=== PATIENT | female | born 1965 | race Caucasian/White ===

== ENCOUNTER 2024-04-02 07:59 | Outpatient (CLI) | payer BC, SELFPAY ==
--- NOTE | ~2024-04-02 | MR_ITS ---
EXAMINATION: MR cervical spine wo con DATE: 04/02/2024 09:05 INDICATION: Cervical radiculopathy TECHNIQUE: Magnetic resonance imaging (MRI) of the cervical spine was performed without intravenous c ontrast. Sequences included sagittal T2-weighted FSE, sagittal T2-weighted FS FSE, sagittal T1-weight ed FSE, axial MERGE and axial T2-weighted FSE. COMPARISON: None FINDINGS: Bone alignment is normal. Vertebral body heights are normal. Sclerotic bone island at the posterior C6 vertebral body. Bone marrow signal intensity is normal. Moderate disc height loss with annular fis sures at C2 C4 through C6-C7. Additional annular fissure without disc height loss at C2-C3. Cord sign al intensity is normal. Cervical soft tissues are unremarkable. The following disc levels are specifi alvaro discussed: C2-C3: The disc does not extend beyond the endplate margin. There is mild right uncovertebral joint o steoarthritis. There is mild bilateral facet joint osteoarthritis. There is no neural foraminal steno sis. There is no central canal stenosis. C3-C4: Disc is bulging. There is severe bilateral uncovertebral joint osteoarthritis. There is mild b ilateral facet joint osteoarthritis. There is moderate bilateral, left greater than right neural fora kennedy stenosis. There is mild central canal stenosis flattening the ventral surface of the cord. C4-C5: Disc is bulging. There is severe bilateral uncovertebral joint osteoarthritis. There is mild r ight and moderate left facet joint osteoarthritis. There is moderate right and moderate to severe lef t neural foraminal stenosis. There is mild central canal stenosis with flattening of the ventral surf devin of the cord. C5-C6: Disc is bulging. There is severe bilateral uncovertebral joint osteoarthritis. There is mild b ilateral facet joint osteoarthritis. There is moderate to severe right and severe left neural foramin al stenosis. There is mild central canal stenosis with flattening of the ventral surface of the cord. C6-C7: Disc is bulging. There is severe bilateral uncovertebral joint osteoarthritis. There is mild b ilateral facet joint osteoarthritis. There is moderate right and moderate to severe left neural shaan inal stenosis. There is mild central canal stenosis with flattening of the ventral surface of the cor d. C7-T1: The disc does not extend beyond the endplate margin. There is no uncovertebral joint osteoarth ritis. There is moderate bilateral facet joint osteoarthritis. There is mild left neural foraminal st enosis. There is no central canal stenosis. IMPRESSION: 1. Moderate cervical spondylosis. Reviewed, dictated and finalized at location A.
--- NOTE | ~2024-04-02 | MR_ITS ---
EXAMINATION: MR lumbar spine wo con DATE: 04/02/2024 09:05 INDICATION: Lumbar radiculopathy. TECHNIQUE: Magnetic resonance imaging (MRI) of the lumbar spine was performed without intravenous con trast. Sequences included sagittal T2-weighted FSE, sagittal T2-weighted FS FSE, sagittal T1-weighted FSE, and axial T2-weighted FSE. COMPARISON: None FINDINGS: There is 5 degrees dextrocurvature of lumbar spine. There is 6 mm anterolisthesis of L4 on L5. There are Schmorl's nodes at most levels. There is moderately decreased disc height at L4-L5 and mildly decreased disc height at L5-S1. The distal spinal cord signal intensity is normal. The conus m edullaris is at T12-L1. There is a 2.2 cm cyst in left kidney. There is a 2.0 cm mass in left kidney. The following disc levels are specifically discussed: L1-L2: The disc does not extend beyond the endplate margin. There is mild bilateral facet joint osteo arthritis. There is no neural foraminal stenosis. There is no central canal stenosis. L2-L3: The disc is bulging. There is mild bilateral facet joint osteoarthritis. There is mild bilater al neural foraminal stenosis. There is mild central canal stenosis. L3-L4: The disc is bulging. There is mild bilateral facet joint osteoarthritis. There is mild bilater al neural foraminal stenosis. There is mild central canal stenosis. L4-L5: The disc is bulging and has an annular fissure. There is severe right facet joint osteoarthrit is. There is mild right and moderate left neural foraminal stenosis. There is mild central canal sten osis. There is posterior decompression. L5-S1: The disc is bulging with superimposed left central extrusion. There is mild bilateral facet nettie int osteoarthritis. There is mild bilateral neural foraminal stenosis. There is mild central canal st enosis. IMPRESSION: 1. Moderate lumbar spondylosis. 2. 2.0 cm left kidney mass, which may be a hemorrhagic cyst or a neoplasm. Abdomen CT or MRI without and with contrast is recommended. Reviewed, dictated and finalized at location E. IMPRESSION: 1. Moderate lumbar spondylosis. 2. 2.0 cm left kidney mass, which may be a hemorrhagic cyst or a neoplasm. Abdo men CT or MRI without and with contrast is recommended.
== END 2024-04-02 08:00 ==
LOC: GOSHIMG 08:01
PROVIDERS: Visit Provider Anesthesiology
DX: M43.02 Spondylolysis, cervical region (principal); M43.06 Spondylolysis, lumbar region; N28.89 Other specified disorders of kidney and ureter
CPT/HCPCS: 72141; 72148

== ENCOUNTER 2024-05-29 08:28 | Outpatient (CLI) | payer BC, SELFPAY ==
--- NOTE | ~2024-05-29 | CT_ITS ---
EXAMINATION:CT diagnostic chest w con DATE: 05/29/2024 09:10 INDICATION: Chest pain. TECHNIQUE: Computed tomography (CT) of the chest was performed with 100 mL Omnipaque 350 intravenous contrast. Automated exposure control and iterative reconstruction technique were employed. The dose-l ength product (DLP) was 128.20 mGy-cm. COMPARISON: None. FINDINGS: There is mild scarring at the lung apices. Calcified right lung nodules are consistent with old granulomatous disease. No pleural effusion. The heart size is normal. No pericardial effusion. T here is mild chronic anterior wedging of multiple mid thoracic vertebral bodies. There is severe thor acic spondylosis. IMPRESSION: 1. No specific etiology for the patient's symptoms. Reviewed, dictated and finalized at location A.
--- NOTE | ~2024-05-29 | CT_ITS ---
CT abdomen pelvis wo/w con Ordering provider: Milena Vernon History: 58 years Female with . FINDING ON KIDNEY . Comparison: None. Technique: CT abdomen and pelvis with and without IV and without oral contrast. Automated exposure co ntrol and iterative reconstruction technique were employed. The dose-length product was 380.96 mGy-cm . 100 mL Omnipaque 350 was given IV. Findings: VISUALIZED LOWER CHEST: Normal. UPPER ABDOMINAL ORGANS: Liver: Normal. Gallbladder: Normal. Spleen: Normal. Stomach/duodenum: Normal. Pancreas: Normal. Adrenals: Normal. Kidneys: Cysts seen in the left kidney upper pole measuring 2.2 cm. Cyst in the left kidney lower sanjeev e measuring 2.5 cm. Cyst is seen in the right kidney midpole measuring 1.5 cm. PELVIC ORGANS: The bladder is underfilled. BOWEL AND MESENTERY: Colon: No evidence of diverticulitis.. Fecal material is loaded in the colon. The appendix is not dem onstrated. Small Bowel: Normal. No obstruction. Peritoneum/mesentery: No free air or free fluid. No mesenteric lymphadenopathy. RETROPERITONEUM: Mild atheromatous disease of the abdominal aorta. No retroperitoneal lymphadenopat hy. MUSCULOSKELETAL: Superficial soft tissues: The superficial soft tissues are normal. Bones: Age appropriate degenerative changes of the spine. Spondylolisthesis at the level of L4-L5. Sp ondylolysis seen on the left side of the same level. IMPRESSION: 1. No evidence of appendicitis, diverticulitis or intestinal obstruction. 2. Constipation. 3. Bilateral renal cysts. Reviewed, dictated and finalized at location A.
== END 2024-05-29 08:29 ==
LOC: MICIMG 08:29
DX: N28.1 Cyst of kidney, acquired (principal); R07.9 Chest pain, unspecified
CPT/HCPCS: 71260; 74178; Q9967

== ENCOUNTER 2024-06-07 07:41 | Outpatient (CLI) | payer BC, SELFPAY ==
--- NOTE | ~2024-06-07 | MM_ITS ---
EXAMINATION: MM screening leonila BI w enrico HISTORY: Screening TECHNIQUE: Craniocaudal and mediolateral oblique 3-D tomosynthesis images were obtained and synthetic 2-D images were generated. CAD analysis was submitted and interpreted. COMPARISON: No prior mammogram is available for comparison at this institution. BREAST PARENCHYMAL COMPOSITION: Dense: The breasts are heterogeneously dense, which may obscure small masses FINDINGS: There are asymmetries in the upper outer quadrant of the left breast anterior-middle depth. There are no suspicious masses, calcifications or architectural distortion of the right breast to paz ggest malignancy. IMPRESSION: 1. Left breast asymmetries. 2. Recommend comparison to previous outside mammograms. BI-RADS Category 0: Incomplete: Needs additional imaging evaluation. Reviewed, dictated and finalized at location B.
== END 2024-06-07 07:42 | disposition home or self-care (01) ==
DX: Z12.31 Encounter for screening mammogram for malignant neoplasm of breast (principal); R92.8 Other abnormal and inconclusive findings on diagnostic imaging of breast
CPT/HCPCS: 77063; 77067

== ENCOUNTER 2024-07-27 10:18 | Outpatient (CLI) | payer BC, SELFPAY ==
--- NOTE | ~2024-07-27 | MMUS_ITS ---
EXAMINATION: MM diagnostic leonila LT w enrico, US breast LT limited HISTORY: Follow-up left breast asymmetries TECHNIQUE: Additional 3-D tomosynthesis images of the left breast were performed and synthetic 2-D im ages were generated. CAD analysis was submitted and interpreted. High resolution Limited left breast ultrasound was performed. COMPARISON: Comparison to multiple prior studies sequentially, with oldest reviewed study dated 05/02. BREAST PARENCHYMAL COMPOSITION: Not dense: There are scattered areas of fibroglandular density. FINDINGS: MAMMOGRAPHIC FINDINGS: There are persistent asymmetry superiorly in the left breast on spot MLO and mediolateral views, alth ough no concordant finding is seen on the spot CC view. ULTRASOUND: Limited left breast ultrasound: At 12:00 near the areola is an irregular shaped hypoechoic 5 mm mass with posterior shadowing. No internal vascularity. IMPRESSION: 1. Irregular shaped hypoechoic left breast mass at 12:00 near the areola. 2. Ultrasound-guided left breast biopsy recommended. BI-RADS category 4, suspicious findings. Reviewed, dictated and finalized at location B. IMPRESSION: 1. Irregular shaped hypoechoic left breast mass at 12:00 near the areola. 2. Ultrasound-guided left breast biopsy recommended. BI-RADS category 4, suspicious findings.
== END 2024-07-27 10:19 | disposition home or self-care (01) ==
DX: R92.8 Other abnormal and inconclusive findings on diagnostic imaging of breast (principal)
CPT/HCPCS: 76642; 77061; 77065; G0279

== ENCOUNTER 2024-09-26 07:28 | Outpatient (CLI) | payer BC, SELFPAY ==
--- NOTE | ~2024-09-26 | MMUS_ITS ---
US breast biopsy LT w image, MM post biopsy diagnostic LT EXAMINATION: US GUIDED NEEDLE BIOPSY WITH VACUUM ASSISTANCE DATE: 09/26/2024 11:04 SUPERVISOR OF COMMUNICATIONS INDICATION: Left breast mass seen on prior examination. Ultrasound-guided core biopsy is requested t o evaluate for malignancy. BREAST PARENCHYMAL COMPOSITION: Not dense: There are scattered areas of fibroglandular density. TECHNIQUE AND FINDINGS: The risks and potential benefits of the procedure were discussed with the patient, and written inform ed consent was obtained. After sterile preparation of the left breast, 1% lidocaine was utilized for local anesthesia. 1% lidocaine with epinephrine was used for deep anesthesia. A 10G vacuum-assisted biopsy gun needle was advanced through to the outer edge of the region of inter est from a superior approach utilizing sonographic guidance. A total of 4 tissue core samples were o btained through the lesion. An Inrad tissue marker clip was then placed at the biopsy site. Hemostas is was achieved. The patient tolerated procedure well and there was no evidence of immediate complication. The patien t was given verbal instructions partly is from the department. Left breast mammograms to document ti ssue marker clip placement. The tissue samples were submitted to surgical pathology for histologic an alysis. Follow up mammogram demonstrates the tissue marker in the mass slightly superior to the nipple on the mediolateral view. There is an additional mass located superiorly to the biopsied mass, not definite ly seen on prior examination or current CC view. Additional sonographic images reveal no discrete mas s in this area. Additional evaluation with stereotactic biopsy of this mass was discussed with the hugo meneses at the time of the examination and will be scheduled. IMPRESSION: 1. Successful ultrasound-guided vacuum-assisted biopsy of left breast mass with post procedure mammo gram for marker placement. Please refer to pathology report for histologic analysis. 2: Follow up mammogram demonstrates the tissue marker in the mass slightly superior to the nipple on the mediolateral view. There is an additional mass located superiorly to the biopsied mass, not defi nitely seen on prior examination or current CC view. Additional sonographic images reveal no discrete mass in this area. Additional evaluation with stereotactic biopsy of this mass was discussed with kiera gannon at the time of the examination and will be scheduled. Reviewed, dictated and finalized at location B. RVISOR OF COMMUNICATIONS IMPRESSION: 1. Successful ultrasound-guided vacuum-assisted biopsy of left breast mass wit h post procedure mammogram for marker placement. Please refer to pathology repo rt for histologic analysis. 2: Follow up mammogram demonstrates the tissue marker in the mass slightly sup erior to the nipple on the mediolateral view. There is an additional mass locat ed superiorly to the biopsied mass, not definitely seen on prior examination or current CC view. Additional sonographic images reveal no discrete mass in this area. Additional evaluation with stereotactic biopsy of this mass was discusse d with the patient at the time of the examination and will be scheduled.
== END 2024-09-26 07:29 | disposition home or self-care (01) ==
DX: R92.8 Other abnormal and inconclusive findings on diagnostic imaging of breast (principal)
CPT/HCPCS: 19083; 77065; 88305; A4648

== ENCOUNTER → 2024-10-15 12:11 | Outpatient (REF) | payer BC, SELFPAY | LOC: ANHLAB 12:11 | PROVIDERS: Visit Provider Plastic Surgery | DX: C44.729 Squamous cell carcinoma of skin of left lower limb, including hip (principal); L57.8 Other skin changes due to chronic exposure to nonionizing radiation | CPT/HCPCS: 88305 ==

== ENCOUNTER 2024-10-25 09:20 | Outpatient (CLI) | payer BC, SELFPAY ==
--- NOTE | ~2024-10-25 | MM_ITS ---
Breast mammography consultation: Post biopsy mammogram on 09/26/2024 demonstrate a focal nodule not s een on prior examination superior to the nipple. Repeat examination today demonstrated no such mass w hich is likely previously attributable to decreased compression on the post biopsy mammogram. Today's mediolateral image looks similar to previous outside mammograms dating back to 05/02/2020. Given the stability and likely benign appearance recommend 6 month follow-up diagnostic left mammogra m. Findings were communicated to the patient by the mammography staff. BI-RADS CATEGORY 3-PROBABLY BENIGN FINDING RECOMMENDATION: Six-month follow-up diagnostic left mammogram recommended. Reviewed, dictated and finalized at location B. 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
== END 2024-10-25 09:21 | disposition home or self-care (01) ==
DX: R92.8 Other abnormal and inconclusive findings on diagnostic imaging of breast (principal)
CPT/HCPCS: 99199

== ENCOUNTER 2025-07-10 00:26 | Day surgery (SDC) | payer BC, SELFPAY ==
--- OUTSIDE RECORDS SUMMARY | 2024-04-06 08:26 | XMS_ITS ---
Author Organization [facility] Address [address] [address] Care Team Providers Care Carbon Lamp Cleaner Name Role Phone Christopher Rodarte MD Primary Care Provider Unavaila Bertrand Rod Unavailable [phone] REASON FOR VISIT Refills Encounters Encounter Location Date Provider Diagnosis [facility] [address] [address] 04/06/2024 Bertrand Rogers PLAN OF TREATMENT No Information
--- OUTSIDE RECORDS SUMMARY | 2024-04-16 03:15 | XMS_ITS ---
Author Organization [facility] Address [address] [place] [address] [place] [address] Care Team Providers Care Scrape Gatherer Name Role Phone Christopher Rodarte MD Primary Care Provider Bertrand Tillman Unavailable [phone] ALLERGIES Allergen (clinical drug ingredient) Drug/Non Drug Allergy documented on EMR Reaction Allergy Type Onset Date Status codeine Codeine nausea and vomiting Drug Allergy Active REASON FOR VISIT Left > Right Neck Pain MEDICATIONS Medication SIG (Take, Route, Frequency, Duration) Notes Start Date End Date Status buPROPion HCl ER (XL) 150 MG 1 tablet in the morning Oral Once a day Active Medrol (Geraldo) 4 MG as directed Orally 03/13/2024 Active traMADol HCl 50 MG 1 tablet as needed O rally every 8 hrs prn severe pain for 7 days 03/15/2024 Active Amphetamine-Dextroamphet ER 30 MG Oral for 30 Active tiZANidine HCl 2 MG 1 tablet at bedtime as needed Orally Once a day for 14 day(s) 04/09/2024 Active Sertraline HCl 50 MG 1 tablet Oral Once a day Active PROBLEMS Problem Type ICD Code Onset Dates Problem Status W/U Status Risk SNOMED Code Notes Problem Spondylosis without myelopathy or radiculopathy, cervicothoracic region (M47.813) Active confirmed Cervical spondylosis without myelopathy ([id number]) VITAL SIGNS Blood pressure systolic 127 mm Hg 04/16/20 24 Blood pressure diastolic 83 mm Hg 024 Heart Rate 78 /min 04/16/2024 Respiratory Rate 16 /min 04/16/2024 Height 5 ft 4 in in 04/16/2024 Weight 140 lbs 04/16/2024 BMI 24.03 kg/m2 04/16/2024 Post procedure vitals BP 144 /86 HR 72 R 18 Pain 10/26. Pt discharged to home ambulatory with steady gait, no sign of acute distress. Encounters Encounter Location Date Provider Diagnosis [facility] [address] [facility] [place] [address] 04/16/2024 Bertrand Rogers Spondylosis without myelopathy or radiculopathy, cervical region M47.812 and Spondylosis without myelopathy or radiculopathy, cervicothoracic region M47.813 ASSESSMENTS Encounter Date Diagnosis Assessment Notes Treatment Notes Treatment Clinical Notes Section Notes 04/16/2024 Spondylosis without myelopathy or radiculopathy, cervical region (ICD-10 - M47.812) 04/16/2024 Spondylosis without myelopathy or radiculopathy, cervicothoracic region (ICD-10 - M47.813) PLAN OF TREATMENT Next Appt Details Follow Up: 05/04 OPV, Reason: Procedure Notes * Category Sub-Category Detail Notes C4-6 Medial Branch Nerve Block Location L eft Anesthesia Local without IV sed ation Operative Technique: After the risks, be nefits, alternative treatment options and potential complications related to the procedure were discussed, informed consent was obtained. The specific risks of this procedure including pain, bleeding, infection, nerve damage, spinal cord injury, paralysis, total spinal anesthesia resulting in cardiopulmonary arrest/, respiratory distress requiring intubation, neuritis after radiofrequency ablation, hyperglycemia, insomnia, hair loss, muscle atrophy, skin depigmentation, weight gain, fluid retention, adrenal suppression, osteoporosis resulting in fractures, avascular necrosis of the hip, cataracts, bleeding gastric ulcer, worsening pain and failure to relieve pain were discussed and the patient is agreeable to proceeding at this time. The patient was placed in the prone position on the fluoroscopy table. Standard ASA monitors were applied. The neck was prepped and draped in the usual sterile fashion with chlorhexidine 2%/IPA 70%. The waist of the articular pillars of the LEFT C4, C5 and C6 were identified under live x-ray guidance using an AP view. A 25 gauge 3.5 inch spinal needle was inserted in a gun barrel fashion to the middle of the waist of the articular pillars using multiple AP and lateral fluoroscopic views to ensure correct placement until periosteum was contacted at each level. 1.5 mL of 0.25% Preservative-Free bupivacaine was mixed. After negative aspiration for blood, air or CSF, 0.5 mL of this solution was injected, blocking the left C4, C5 and C6 medial branch nerves. The needles were then removed, the skin was cleaned and band-aids were placed over the puncture sites. The patient tolerated the procedure well, was able to ambulate without difficulty and was monitored for 20 minutes. The patient remained hemodynamically and neurologically stable. No complications were observed. The patient noted a 90% reduction in his/her typical neck pain associated with extension and lateral rotation of the cervical spine. Postoperative instructions were reviewed with the patient. The patient was discharged home in good condition with a frontload driver. X-ray time: 2 seconds Progress Notes * Examination Category Sub-Category Detail Notes Category Not es Examination/ Pre-Anesthesia Assessment General: The patient is alert and oriented X 3 in moderate distress secondary to pain HEENT: Normocephalic, atrau matic. PERRL. The oropharynx is clear Neck: There is limited ran ge of motion of the cervical spine to 60 degrees with extension and lateral rotation bilaterally. There is tenderness to palpation over the bilateral C3-4 through C7-T1 facet joints. Extension and lateral rotation of the cervical spine reproduces the patients typical axial neck pain. The axial loading test is positive. There is diffuse tenderness to palpation over the bilateral cervical paraspinal muscles and significant muscle spasm throughout. There are palpable myofascial trigger points within the body of the trapezius muscles bilaterally Heart: Regular rate and rhy thm Chest: Clear to auscultatio n bilaterally Abdomen: Soft and benign with normal bowel sounds throughout Musculoskeletal and Extremities: There i s tenderness to palpation over the bilateral L2-3 through L5-S1 facet joints. Extension and lateral rotation of the lumbar spine reproduces the patient's typical axial low back pain. Shubham's, [place]'s and Gaenslen's are positive bilaterally. There is tenderness to palpation over the bilateral sacroiliac joints and greater trochanters. There is tenderness to palpation over the bilateral lumbar paraspinal muscles Neurological: There is positive st raight leg raising on the left. Spurling sign is positive on the left. There is 4/5 strength at the left anterior tibialis and comb capper strength on the left. Otherwise, there are no focal strength deficits in the remainder of the left upper and lower extremities. There are no strength deficits in the right upper and lower extremities Skin: Clean, dry and intac t Psychiatric: Mood and affect are normal History and Physical Notes * HPI (History of Present Illness) Category Sub-Category Detail Notes Category Not es Pain Management Radiographic Imaging An MRI of the cervical and lumbar spine done on 08/15/19 demonstrates bilateral facet and uncovertebral hypertrophy from C3-4 through C6-7. At C4-5 there is mild central canal and severe bilateral foraminal stenosis. At C5-6 there is generalized disc bulging and in combination with facet and uncovertebral hypertrophy there is mild central canal and severe bilateral foraminal stenosis. At C6-7 there is central disc bulging in combination with facet and uncovertebral hypertrophy there is mild central canal and moderate to severe bilateral foraminal stenosis. C7-T1 is normal. There is bilateral facet arthropathy from L2-3 through L5-S1. At L3-4 there is mild bilateral foraminal stenosis. At L4-5 there is a left paracentral disc extrusion and a left sided laminotomy. In combination with facet hypertrophy there is moderate central canal and moderate to severe left lateral recess stenosis. At L5-S1 there is a central disc bulge as well as a left laminotomy. There is moderate bilateral foraminal stenosis MRI cervical spine performed 04/02/24. Moderate disc height loss with annular fissures at C2, C4-C6 7. Additional annular fissure without disc height loss at C2-3 cord signal intensity is normal. Cervical soft tissues are unremarkable. C2-3, but this does not extend beyond the endplate margin. There is mild right uncovertebral joint osteoarthritis. There is mild bilateral facet joint osteoarthritis. There is no neural foraminal stenosis. There is no central canal stenosis. C3-4 disc is bulging. There is severe bilateral uncovertebral joint osteoarthritis. There is mild bilateral facet joint osteoarthritis. There is moderate bilateral, left greater than right neural foraminal stenosis. There is mild central canal stenosis, flattening the ventral surface of the cord. C4-5 disc is bulging. There is severe bilateral uncovertebral joint osteoarthritis. There is mild right and moderate left facet joint osteoarthritis. There is moderate right and moderate to severe left neural foraminal stenosis. There is mild central canal stenosis with flattening of the ventral surface of the cord. C5-6 disc is bulging. There is severe bilateral uncovertebral joint osteoarthritis. There is mild bilateral facet joint osteoarthritis. There is moderate to severe right and severe left neural foraminal stenosis. There is mild central stenosis with flattening of the ventral surface of the cord. C6-C7 disc is bulging. There is severe bilateral uncovertebral joint osteoarthritis. There is mild bilateral facet joint osteoarthritis. There is moderate right and moderate to severe left neural foraminal stenosis. There is mild central canal stenosis with flattening of the ventral surface of the cord. C7-T1. This does not extend beyond the endplate margin. There is no uncovertebral joint osteoarthritis. There is moderate bilateral facet joint osteoarthritis. There is mild left neural foraminal stenosis. There is no central canal stenosis. Lumbar MRI performed 04/02/24. L1-2 disc does not extend beyond the endplate margin. There is mild bilateral facet joint osteoarthritis. There is no neural foraminal stenosis. There is no central canal stenosis. L2-3 disc is bulging. There is mild bilateral facet joint osteoarthritis. There is mild bilateral neural foraminal stenosis. There is mild central canal stenosis. L3-4 that this is bulging. There is mild bilateral facet joint osteoarthritis. There is mild bilateral neural foraminal stenosis. There is mild central canal stenosis. L4-5 disc bulging and has annular fissure. There is severe right facet joint osteoarthritis. There is mild right and moderate left neural foraminal stenosis. There is mild central canal stenosis. There is posterior decompression. L5-S1. The disc is bulging with superimposed left central extrusion. There is mild bilateral facet joint osteoarthritis. There is mild bilateral neural foraminal stenosis. There is mild central canal stenosis. Overall, impression moderate lumbar spondylosis. 2.0 cm, left kidney mass, which may be hemorrhagic cyst or a neoplasm. Abdominal CT or MRI without and with contrast recommended Assessment and Follow-up: Follow-up Plan documen denise:: Yes MIPS Quality 2020: MIPS Documented:: Compliant
--- OUTSIDE RECORDS SUMMARY | 2024-05-04 02:30 | XMS_ITS ---
Author Organization [facility] Address [address] [place] [address] Care Team Providers Care Lock Tender Chief Operator Name Role Phone Christopher Rodarte MD Primary Care Provider Bertrand Tillman Unavailable [phone] ALLERGIES Allergen (clinical drug ingredient) Drug/Non Drug Allergy documented on EMR Reaction Allergy Type Onset Date Status codeine Codeine nausea and vomiting Drug Allergy Active REASON FOR VISIT Follow Up, Left Neck Pain MEDICATIONS Medication SIG (Take, Route, Frequency, Duration) Notes Start Date End Date Status tiZANidine HCl 2 MG 1 tablet at bedtime as needed Orally Once a day for 14 day(s) 04/09/2024 Active Amphetamine-Dextroamphet ER 30 MG Oral for 30 Active traMADol HCl 50 MG 1 tablet as needed O rally every 8 hrs prn severe pain for 7 days 03/15/2024 Active Medrol (Geraldo) 4 MG as directed Orally 03/13/2024 Active buPROPion HCl ER (XL) 150 MG 1 tablet in the morning Oral Once a day Active Sertraline HCl 50 MG 1 tablet Oral Once a day Active VITAL SIGNS Blood pressure systolic 136 mm Hg 05/04/20 24 Blood pressure diastolic 89 mm Hg 024 Heart Rate 73 /min 05/04/2024 Respiratory Rate 18 /min 05/04/2024 Height 5 ft 4 in in 05/04/2024 Weight 140 lbs 05/04/2024 BMI 24.03 kg/m2 05/04/2024 Encounters Encounter Location Date Provider Diagnosis [facility] [address] [facility] [place] [address] 05/04/2024 Bertrand Rogers Spondylosis without myelopathy or radiculopathy, cervical region M47.812 ; Lumbar radiculopathy M54.16 ; Radiculopathy, cervical region M54.12 ; Degenerative cervical spinal stenosis M48.02 ; Osseous stenosis of neural canal of cervical region M99.31 ; Osseous stenosis of neural canal of lumbar region M99.33 and Postlaminectomy syndrome, not elsewhere classified M96.1 ASSESSMENTS Encounter Date Diagnosis Assessment Notes Treatment Notes Treatment Clinical Notes Section Notes 05/04/2024 Spondylosis without myelopathy or radiculopathy, cervical region (ICD-10 - M47.812) 05/04/2024 Lumbar radiculopathy (ICD-10 - M54.16) Schedule a bilateral L4-5 transforaminal epidural steroid injection. The risks of this procedure including pain, bleeding, infection, spinal headache, persistent spinal fluid leak, epidural hematoma, nerve damage, spinal cord injury, paralysis, total spinal anesthesia resulting in cardiopulmonary arrest/, respiratory distress requiring intubation, insomnia, hyperglycemia, hair loss, muscle atrophy, skin depigmentation, weight gain, fluid retention, adrenal suppression, immunosuppression, osteoporosis resulting in fractures, avascular necrosis of the hip, cataracts, bleeding gastric ulcer, worsening pain and failure to relieve pain were discussed and the patient is agreeable to proceeding at this time. 05/04/2024 Radiculopathy, cervical region (ICD-10 - M54.12) 05/04/2024 Degenerative cervical spinal stenosis (ICD-10 - M48.02) 05/04/2024 Osseous stenosis of neural canal of cervical region (ICD-10 - M99.31) 05/04/2024 Osseous stenosis of neural canal of lumbar region (ICD-10 - M99.33) 05/04/2024 Postlaminectomy syndrome, not elsewhere classified (ICD-10 - M96.1) 05/04/2024 Other The above-named patient was evaluated in conjunction with Dr. Rogers. I have discussed and reviewed all of the pertinent history, physical examination findings and diagnostic imaging results with him. As a result of our discussion, Dr. Rogers has determined the above assessment and directed the treatment plan. This note was dictated using voice recognition software and therefore inadvertent errors may have occurred. This note was dictated by MAYITO De Anda PLAN OF TREATMENT Treatment Notes Assessment Notes Lumbar radiculopathy Schedule a bilatera l L4-5 transforaminal epidural steroid injection. The risks of this procedure including pain, bleeding, infection, spinal headache, persistent spinal fluid leak, epidural hematoma, nerve damage, spinal cord injury, paralysis, total spinal anesthesia resulting in cardiopulmonary arrest/, respiratory distress requiring intubation, insomnia, hyperglycemia, hair loss, muscle atrophy, skin depigmentation, weight gain, fluid retention, adrenal suppression, immunosuppression, osteoporosis resulting in fractures, avascular necrosis of the hip, cataracts, bleeding gastric ulcer, worsening pain and failure to relieve pain were discussed and the patient is agreeable to proceeding at this time. Other The above-named kevin ent was evaluated in conjunction with Dr. Rogers. I have discussed and reviewed all of the pertinent history, physical examination findings and diagnostic imaging results with him. As a result of our discussion, Dr. Rogers has determined the above assessment and directed the treatment plan. This note was dictated using voice recognition software and therefore inadvertent errors may have occurred. This note was dictated by MAYITO De Anda Next Appt Details Follow Up: bilateral L4-5 TF E, Reason: Progress Notes * Examination Category Sub-Category Detail [...] patient's typical axial low back pain. Shubham's, Boomer's and Gaenslen's are positive bilaterally. There is tenderness to palpation over the bilateral sacroiliac joints and greater trochanters. There is tenderness to palpation over the bilateral lumbar paraspinal muscles Neurological: There is positive st raight leg raising on the left. Spurling sign is positive on the left. There is 4/5 strength at the left anterior tibialis and news assistant strength on the left. Otherwise, there are [...]
--- OUTSIDE RECORDS SUMMARY | 2024-05-28 02:30 | XMS_ITS ---
Author Organization [facility] Address [address] [facility] [place] [address] Care Team Providers Care Librarian Specialist Name Role Phone Christopher Rodarte MD Primary Care Provider Bertrand Tillman Unavailable [phone] ALLERGIES Allergen (clinical drug ingredient) Drug/Non Drug Allergy documented on EMR Reaction Allergy Type Onset Date Status codeine Codeine nausea and vomiting Drug Allergy Active REASON FOR VISIT Follow Up, Left > Right Low Back Pain, Left Lower Extremity Pain MEDICATIONS Medication SIG (Take, Route, Frequency, Duration) Notes Start Date End Date Status traMADol HCl 50 MG 1 tablet as needed O rally every 8 hrs prn severe pain for 7 days 03/15/2024 Active Medrol (Geraldo) 4 MG as directed Orally 03/13/2024 Active buPROPion HCl ER (XL) 150 MG 1 tablet in the morning Oral Once a day Active tiZANidine HCl 2 MG 1 tablet at bedtime as needed Orally Once a day for 14 day(s) 04/09/2024 Active Amphetamine-Dextroamphet ER 30 MG Oral for 30 Active Sertraline HCl 50 MG 1 tablet Oral Once a day Active VITAL SIGNS Blood pressure systolic 150 mm Hg 05/28/20 24 Blood pressure diastolic 91 mm Hg 024 Heart Rate 80 /min 05/28/2024 Respiratory Rate 18 /min 05/28/2024 Height 5 ft 4 in in 05/28/2024 Weight 140 lbs 05/28/2024 BMI 24.03 kg/m2 05/28/2024 Encounters Encounter Location Date Provider Diagnosis [facility] [address] 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 She currently denies a need for any injections or interventions at this time. She would like to return to the office in 1 month for follow-up and reevaluation of her pain at that time. 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 She currently denies a need for any injections or interventions at this time. She would like to return to the office in 1 month for follow-up and reevaluation of her pain at that time. Other The above-named kevin ent was [...] De Anda Next Appt Details Follow Up: 4 Weeks OPV, Reas on: Progress Notes * Examination Category Sub-Category Detail [...] patient's typical axial low back pain. Shubham's, [place]'s and Gaenslen's are positive bilaterally. There is tenderness to palpation over the bilateral sacroiliac joints and greater trochanters. There is tenderness to palpation over the bilateral lumbar paraspinal muscles Neurological: There is positive st raight leg raising on the left. Spurling sign is positive on the left. There is 4/5 strength at the left anterior tibialis and robotics engineer strength on the left. Otherwise, there are [...]
[2025-06-27 08:26] VITALS: BMI 20.6
--- OUTSIDE RECORDS SUMMARY | 2025-07-10 00:29 | XMS_ITS | Clinical Summary ---
Author Organization [facility] [address] Address [address] [place] [address] Care Team Providers Care Licensed Retail Supervisor Name Role Phone Bertrand Rogers MD Unavailable [phone] Umm Lepe MD Unavailable Asia Leone NP Primary Care Provider [phone] Allergies Active Allergy Reactions Criticality Noted Date Comments Codeine Nausea only,Unknown,Vomiting Low 016 Medications dextroamphetami ne-amphetamine (ADDERALL) 10 mg tablet TAKE ONE-HALF TO ONE TABLET BY MOUTH DAILY NEEDED 2 Active sertraline (ZOLOFT) 100 mg tablet Take 1 tablet (100 mg total) by mouth daily 2 Active triamcinolone (KENALOG) 0.025 % creamIndication s:Psoriasis Apply topically 2 (two) times a day Active dextroamphetami ne-amphetamine XR (ADDERALL XR) 30 mg 24 hr capsule Take 1 capsule (30 mg total) by mouth every morning Active clobetasoL (TEMOVATE) 0.05 % ointment APPLY TO RASH AREAS ON LEGS/TRUNK/ARM S DAILY FOR 4 WEEKS WHEN RASH IS FLARED (DO NOT APPLY TO FACE) 4 Active testosterone micronized, bulk, 100 % powder 3 4 Active traMADoL (ULTRAM) 50 mg tablet TAKE 1 TABLET BY MOUTH EVERY 8 HOURS NEEDED FOR SEVERE PAIN 7 DAYS 4 Active Vraylar 1.5 mg capsule capsule Take by mouth daily 5 Active buPROPion XL (WELLBUTRIN XL) 300 mg 24 hr tablet Take 1 tablet (300 mg total) by mouth daily 5 Active Active Problems Problem Noted Date Diagnosed Date Current mild episode of major depressive disorde r 04/09/2024 Assessment & Plan (04/09/2024 9:05 AM CDT): Stable on current medication. Continue bupropion and Wellbutrin as ordered by Psychiatry MALTER OPERATOR. Annual physical exam 04/09/2024 Assessment & Plan (04/10/2025 8:28 AM CDT): Assessment & Plan (04/09/2024 9:03 AM CDT): -Recommended: Healthy diet. Avoiding junk food/fast food. -30 minutes of exercise most days of the week. Increase to 45 minutes for weight loss. Health Maintenance reviewed - colonoscopy referral, shingrex today. -Influenza vaccine every year Recommend: -There are no preventive care reminders to display for this patient. -F/u in 1 year for Annual PE or sooner if needed Attention deficit hyperactiv ity disorder (ADHD), predominantly inattentive type 04/09/2024 Assessment & Plan (04/09/2024 9:05 AM CDT): Stable. Being managed by psychiatry MALTER OPERATOR Lumbar disc herniation 08/16/2019 Assessment & Plan (04/09/2024 9:06 AM CDT): Patient is seeing pain management Dr. Rogers Encounters Date Type Department Care Team Description 04/14/2025 Results Follow-Up [facility] Primary Care at [address] [address] Asia Leone NP Lipid panel 04/10/2025 8:35 AM CDT - 04/10/2025 11:59 PM CDT Hospital Encounter [address] [address] Elevated LDL cholesterol level Discharge Disposition: Discharge to home or self care 04/10/2025 8:30 AM CDT Lab [facility] Outpatient Lab at [address] [address] 04/10/2025 8:00 AM CDT Office Visit [facility] Primary Care at [address] [phone] Asia Leone NP Annual physical exam (Primary Dx); Encounter for screening colonoscopy; Elevated LDL cholesterol level from Last 3 Months Immunizations Immunization Administration Dates Next Due Influenza, Quadrivalent, Rec ombinant, Egg Free, Preservative Free, Intramuscular 07/27/2018 Influenza, Quadrivalent, Spl it, Intramuscular 08/13/2015 Influenza, Quadrivalent, Spl it, Preservative Free, Intramuscular 07/22/2021,07/10/2020,08/17/2019,07/27,07/21/2016 Influenza, Trivalent, Preser vative Free, Intramuscular 10/19/2024 Influenza, Unspecified 10/17/2023(Deferr ed: Patient Refused),10/17/2022(Deferred: Patient Refused) Pneumococcal Polysaccharide PPV23 08/17/2019 Tdap 04/12/2019 ZOSTER Recombinant 06/05/2024,04/09/2024 Surgical History Surgery Date Site/Laterality Comments ABLATION BACK SURGERY SECTION Medical History Medical History Date Comments Herniated disc, cervical Psoriasis Family History Medical History Relation Name Comments Heart disease Father Hypertension Father Appendix Cancer Mother Relation Name Status Comments Father Mother Social History Tobacco Use Types Packs/Day Years Used Date Smoking Tobacco: Never Smokeless Tobacco: Never Tobacco Cessation:Counseling Given: Not Answered AUDIT-C Answer Date Recorded Q1: How often do you have a drink containing alc ohol? 2-3 times a week 03/14/2024 Q2: How many drinks containi ng alcohol do you have on a typical day when you are drinking? 3 or 4 03/14/2024 Q3: How often do you have si x or more drinks on one occasion? 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 Gender Identity Female 04/10/2024 12:25 PM CDT Sexual Orientation Straight 04/10/2024 12 :25 PM CDT Obstetrics History Para Term AB IAB SAB Ectopic Multiple Livin g Live Births 3 3 3 3 3 Date Outcome GA Total Labor Labor/2nd/3rd Weight Sex Type Anes PTL Shnaa A1 A5 Name Clin 01/26 Term 3.175 kg (7 lb) F Vaginal Living 10/05 Term 3.175 kg (7 lb) F C-Secti on Living 09/07 Term 3.629 kg (8 lb) M Vaginal Living Last Filed Vital Signs Vital Sign Reading Time Taken Comments Blood Pressure 126/78 04/10/2025 8:06 AM CDT Pulse 78 04/10/2025 8:06 AM CDT Temperature 36.7 C (98.1 F) 04/10/2025 8:06 AM CDT Respiratory Rate 18 04/10/2025 8:06 AM CDT Oxygen Saturation 98% 04/10/2025 8:06 AM CDT Inhaled Oxygen Concentration - - Weight 53.3 kg (117 lb 9.6 oz) 04/10/2025 8:06 A M CDT Height 152.4 cm (5') 04/10/2025 8:06 AM CDT Body Mass Index 22.97 04/10/2025 8:06 AM CDT Plan of Treatment Health Maintenance Due Date Last Done Comments Colon Cancer Screening-Colonoscopy 1964 Hepatitis B Screening 1982 Cervical Cancer Screening 03/14/2025 03/14/2024 Breast Cancer Screening-Mammogram 06/07/2025 06/07/2024 Covid-19 Vaccine ( season) 2025 10/20/2021, 12/12/2020, 11/07/2020 Influenza Vaccine (#1) 2025 , 07/22/2021, 07/10/2020, Additional history exists Depression Screening 04/10/2026 04/10/2025, 04/09/2024, 03/14/2024 Regular Well Visit/Exam 18-64 04/10/2026 04/10/2025, 04/09/2024, 03/14/2024 DTaP/Tdap/Td Vaccine (2 - Td or Tdap) 04/12/2029 04/12/2019 Pneumococcal vaccine <65 Aged Out 08/17/2019 No longer eligible based on patient's age to complete this topic Hepatitis C Screening Completed 04/09/2024 Zoster Vaccine Completed 06/05/2024, 04/09/2024 Procedures Procedure Name Priority Date/Time Associated Diagnosis Comments LIPID PANEL Routine 04/10/2025 5:33 PM CDT Elevated LDL cholesterol level SCREENING MAMMOGRAM BILATERAL W YOGESH Schedule Routine, Read Routine (OP Routine) 06/07/2024 10:02 AM CDT HEPATITIS C ANTIBODY Routine 04/09/2024 9:07 AM CDT Encounter for hepatitis C screening test for low risk patient PAP AND HPV, REFLEX TO HPV GENOTYPES Routine 03/14/2024 9:36 AM CDT Encounter for gynecological examination with Papanicolaou smear of cervix from Last 3 Months or Most Recently Relevant to Health Maintenance Results * (ABNORMAL) Lipid panel (04/10/2025 5:33 PM CDT) Cholesterol 236(H) 30 - 199 mg/dL Comment: Interpretive Data Ages < or = 19 years Acceptable: <170 mg/dL Borderline high: 170-199 mg/dL High: >or= 200 mg/dL Ages > or = 20 years Desirable: <200 mg/dL Borderline high: 200-239 mg/dL High: >or= 240 mg/dL Literature References: 1. Expert Panel on Integrated Guidelines for Cardiovascular Health and Risk Reduction in Children and Adolescents. Pediatrics 2011;128:S213 2. NCEP Expert Panel. Circulation 2004;110:227 Current Interpretive Data was last revised on 2018. Triglycerides 60 <=149 mg/dL DUY HENRY Comment: Interpretive Data Ages < or = 9 years Acceptable: <75 mg/dL Borderline high: 75-99 mg/dL High: >or= 100 mg/dL Ages 10 to 20 years Acceptable: <90 mg/dL Borderline high: 90-129 mg/dL High: >or= 130 mg/dL Ages > or = 20 years Desirable: <150 mg/dL Borderline high: 150-199 mg/dL High: 200-499 mg/dL Very high: >or= 499 mg/dL Literature References: 1. Expert Panel on Integrated Guidelines for Cardiovascular Health and Risk Reduction in Children and Adolescents. Pediatrics 2011;128:S213 2. NCEP Expert Panel. Circulation 2004;110:227 Current Interpretive Data was last revised on 2018. HDL 98 >=40 mg/dL DUY HENRY Comment: Interpretive Data Ages < or = 19 years Acceptable: >45 mg/dL Borderline low: 40-45 mg/dL Low: <40 mg/dL Ages > or = 20 years Desirable: >or= 60 mg/dL Low: <40 mg/dL Literature References: 1. Expert Panel on Integrated Guidelines for Cardiovascular Health and Risk Reduction in Children and Adolescents. Pediatrics 2011;128:S213 2. NCEP Expert Panel. Circulation 2004;110:227 Current Interpretive Data was last revised on 2018. LDL, calculated 128 <=129 mg/dL DUY HENRY Comment: Interpretive Data Ages < or = 19 years Acceptable: <110 mg/dL Borderline high: 110-129 mg/dL High: >or= 130 mg/dL Ages > or = 20 years Optimal: <100 mg/dL Near optimal: 100-129 mg/dL Borderline high: 130-159 mg/dL High: >160 mg/dL Calculated using the Refugio LDL-C estimating equation. This equation was implemented on 2024. Prior to this date LDL-C was estimated using the Friedewald equation. Literature References: 1. Expert Panel on Integrated Guidelines for Cardiovascular Health and Risk Reduction in Children and Adolescents. Pediatrics 2011;128:S213 2. NCEP Expert Panel. Circulation 2004;110:227 3. Refugio Mendieta et al. TESS Cardiol. 2020 February 14;5(5):540-548. doi: 10.1001/jamacardio.2020.0013 Current Interpretive Data was last revised on 2024. Non-HDL Cholesterol 138 mg/dL [facility]Y HENRY Comment: Interpretive Data Ages < or = 19 years Acceptable: <120 mg/dL Borderline high: 120-144 mg/dL High: >145 mg/dL Ages > or = 20 years When triglycerides are >200 mg/dL, Non-HDL cholesterol is a secondary target of therapy with treatment goals that are 30 mg/dL greater than the LDL cholesterol target. Literature References: 1. Expert Panel on Integrated Guidelines for Cardiovascular Health and Risk Reduction in Children and Adolescents. Pediatrics 2011;128:S213 2. NCEP Expert Panel. Circulation 2004;110:227 Current Interpretive Data was last revised on 2018. Chol/HDL ratio 2 DUY Blood 04/10/2025 5:33 PM CDT 04/10/2025 5:35 PM CDT Asia Leone NP LAB BLOOD ORDERABLES Final Re sult Performing Organization Address City/[facility]/ZIP Co de Phone Number DUY [address] [place] [address] * Screening Mammogram Bilateral W Yogesh (06/07/2024 10:02 AM CDT) Anatomical Region Laterality Modality Breast Bilateral Mammography [facility] Provider IMG MAMMO PROCEDURES Lucrecia l Result * Hepatitis C antibody Blood (04/09/2024 9:07 AM CDT) Hep C Ab Nonreactive Nonreactive Comment: Interpretive Data Nonreactive: Antibodies to HCV not detected. Does NOT exclude the possibility of recent exposure to HCV. Equivocal: Equivocal for HCV antibodies. Supplemental molecular testing will be automatically performed to determine infection status in accordance with current CDC screening recommendations. Reactive: Positive for HCV antibodies. This may represent current or past HCV infection. Supplemental molecular testing will be automatically performed to determine current infection status in accordance with current CDC screening recommendations. Interpretive data was last revised on 2020. Blood 04/09/2024 9:07 AM CDT 04/09/2024 3:08 PM CDT Asia Leone NP LAB MICROBIOLOGY - GENERAL OR DERABLES Edited Result - Final Performing Organization Address City/[facility]/ZIP Co de Phone Number DUY [address] [place] [address] * Pap and HPV, reflex to HPV Genotypes (03/14/2024 9:36 AM CDT) CLINICAL INFORMATION: [facility] Comment:None given LMP [facility] Comment:None given Previous Pap [facility] Comment:None given Prev. Bx [facility] Comment:None given SOURCE: [facility] Comment:Cervix, Endocervix Pap, specimen adequacy [facility] Comment:SATISFACTORY FOR SAMEER LUATION HPV interp [facility] Comment: Cytology Results: Negative for intraepithelial lesion or malignancy. Atrophic pattern; predominantly parabasal cells COMMENTS [facility] Comment: This Pap test has been evaluated with computer assisted technology. Supervisor Sterile Processing [facility] Comment: YQ, CT(ASCP) CT screening location: [place] [address] [address] [place] [address] Comment [facility] Comment: EXPLANATORY NOTE: The Pap is a screening test for cervical cancer. It is not a diagnostic test and is subject to false negative and false positive results. It is most reliable when a satisfactory sample, regularly obtained, is submitted with relevant clinical findings and history, and when the Pap result is evaluated along with historic and current clinical information. Human papillomavirus DNA, High Risk E6/E7 Not Detected NOT DETECTED Veronika Murray /Moe [place] Comment: Not Detected High Risk HPV types (16,18,31,33,35,39,45,51,52, 56,58,59,66,68) were not detected. Other HPV types which cause anogenital lesions may be present. The significance of the other types of HPV in malignant processes has not been established. Methodology: Real Time PCR Thin prep 03/14/2024 9:36 AM CDT 03/15/2024 3:10 AM CDT us Yvonne Simmons NP LAB CYTOLOGY ORDERABLES Final Re sult [place] [address] [address] [place] [phone] Veronika Murray/[place] [address] [facility] [place] [phone] from Last 3 Months or Most Recently Relevant to Health Maintenance Insurance [employer] [place] [employer] [place] Care Teams Licensed Retail Supervisor Relationship Specialty Start Date End Date Asia Leone NP [address] [address] PCP - General Family Medicine 04/09/24 Bertrand Rogers MD [address] [place] [address] Anesthesiologist Pain Management 04/09/24 Umm Lepe MD [address] [place] [address] Referring Physician Dermatology 04/09/24 Venita Kwan [place], [place] Nurse Practitioner Psychiatry 04/09/24
--- OUTSIDE RECORDS SUMMARY | 2025-07-10 00:29 | XMS_ITS | Clinical Summary ---
Author Organization [facility] Address [address] [place] [address] Phone Care Team Providers Care Camp Dishwasher Name Role Phone Christopher Rodarte DO Primary Care Provider [phone] Allergies Active Allergy Reactions Criticality Noted Date Comments Codeine Nausea,Vomiting 04/22/2016 Medications amphetamine-dex troamphetamine (ADDERALL) 10 MG Tablet Take 10 mg by mouth 2 times daily as needed. Active buPROPion (WELLBUTRIN) 150 MG XL tablet Take 150 mg by mouth every morning. Active sertraline (ZOLOFT) 50 MG Tablet Take 50 mg by mouth daily. Active Sulfamethoxazol e-Trimethoprim (SEPTRA DS PO) Take 1 Tab by mouth daily. PSORIASIS Active Cholecalciferol (VITAMIN D PO) Take 1 Tab by mouth daily. Active [place]-3 Fatty Acids (FISH OIL PO) Take 1 Tab by mouth daily. Active ibuprofen (MOTRIN) 200 MG Tablet Take 2-3 tabs every 4 hours as needed for pain 100 Tab 0 6 Active HYDROcodone-devin taminophen (NORCO) 5-325 MG Tablet Take 1-2 Tabs by mouth every 4 hours as needed for Pain. 20 Tab 0 6 Active promethazine (PHENERGAN) 25 MG Tablet Take 1 Tab by mouth every 4 hours as needed for Nausea. 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 Gender Identity Not on file Sexual Orientation Not on file Last Filed Vital Signs Vital Sign Reading Time Taken Comments Blood Pressure 110/72 04/23/2016 1:30 PM CDT Pulse 67 04/23/2016 1:30 PM CDT Temperature 36.5 C (97.7 F) 04/23/2016 1:30 PM CDT Respiratory Rate 16 04/23/2016 1:30 PM CDT Oxygen Saturation 96% 04/23/2016 1:30 PM CDT Inhaled Oxygen Concentration - - Weight 59.4 kg (131 lb) 04/22/2016 11:00 AM CDT Height 162.6 cm (5' 4) 04/22/2016 11:00 AM CDT Body Mass Index 22.49 04/22/2016 11:00 AM CDT Plan of Treatment Health Maintenance Due Date Last Done Comments Hepatitis C Virus (HCV) Screening 1964 TdaP Immunization 1964 Pap Smear 1985 Cervical Cancer Screening (CCS) 1994 HPV/Cotest 1994 Cologuard 2009 Colonoscopy 2009 Colorectal Cancer Screening 2009 Immunochemical Fecal Occult Blood 2009 Pneumococcal Immunization (5 0+ years) (1 of 1 - PCV) 2014 Zoster Immunization (1 of 2) 2014 SARS-COV-2 Immunization ( - 2023- season) 2024 Influenza Immunization (#1) 2025 Respiratory Syncytial Virus (RSV) Immunization (Adult) (1 - 1-dose 75+ series) 2039 Hepatitis B Immunization Aged Out No longer eligible based on patient's age to complete this topic Human Papillomavirus (HPV) Immunization Aged Out No longer eligible b ased on patient's age to complete this topic Meningococcal Immunization (ACWY) Aged Out No longer eligible based on patient's age to complete this topic Rotavirus Immunization Aged Out No lo nger eligible based on patient's age to complete this topic Advance Directives * Full Code (Latest Code Status on File) Date Activated Date Inactivated Comments 04/23/2016 7:36 AM 04/23/2016 4:01 PM CPR-Full Treat ment: FULL ARREST: Attempt Resuscitation/CPR wit intubation and mechanical ventilation. PRE-ARREST: Use entire range of life support measures to stabilize the patient. Care Teams Camp Dishwasher Relationship Specialty Start Date End Date Christopher Rodarte DO [address] [place] [id number] PCP - General Family Medicine 12/26/15
--- OUTSIDE RECORDS SUMMARY | 2025-07-10 00:30 | XMS_ITS | Clinical Summary ---
Author Organization [facility] Address [address] [place] [address] Phone Care Team Providers Care Jewelry Finisher Name Role Phone Christopher Rodarte DO Primary Care Provider [phone] Allergies Active Allergy Reactions Criticality Noted Date Comments Codeine Unknown 08/15/2019 Medications buPROPion (WELLBUTRIN) 100 mg tablet Take 50 mg by mouth 2 times daily. Active sertraline (ZOLOFT) 50 mg tablet Take 50 mg by mouth daily. Active diazePAM (VALIUM) 5 mg tabletIndicatio ns:Lumbar disc herniation Take 1 Tablet (5 mg) by mouth every 6 hours as needed for Anxiety or Spasm. 40 Tablet 08/18/2019 Active oxyCODONE (ROXICODONE) 5 mg tabletIndicatio ns:Lumbar disc herniation Take 1-2 Tablets (5-10 mg) by mouth every 4 hours as needed for Pain. Max Daily Amount: 60 mg 60 Tablet 08/18/2019 Active Active Problems Problem Noted Date Diagnosed Date Lumbar disc herniation 08/16/2019 Immunizations Immunization Administration Dates Next Due (PNEUMOVAX 23)(50 YRS UP) PN EUMOCOCCAL POLYSACCHARIDE (PPV23) 0.5 ML, IM 08/17/2019 INFLUENZA VACCINE QUADRIVALENT 6 MOS UP PF IM Social History Tobacco Use Types Packs/Day Years Used Date Smoking Tobacco: Unknown Comments Unknown Sex and Gender Information Value Date Recorded Sex Assigned at Not on file Legal Sex Female 1:50 PM CDT Gender Identity Not on file Sexual Orientation Not on file Last Filed Vital Signs Vital Sign Reading Time Taken Comments Blood Pressure 121/73 08/18/2019 12:08 PM CDT Pulse 80 08/18/2019 12:08 PM CDT Temperature 36.9 C (98.5 F) 08/18/2019 12:08 PM CDT Respiratory Rate 16 08/18/2019 12:08 PM CDT Oxygen Saturation 100% 08/18/2019 12:08 PM CDT Inhaled Oxygen Concentration - - Weight 63.5 kg (140 lb) 08/15/2019 2:14 PM CDT Height 162.6 cm (5' 4) 08/15/2019 2:14 PM CDT Body Mass Index 24.03 08/15/2019 2:14 PM CDT Plan of Treatment Health Maintenance Due Date Last Done Comments DTAP/TDAP/TD VACCINES (1 - Tdap) 1983 HPV/Cotest (21-29) 1985 CERVICAL CANCER SCREENING 1994 HPV/Cotest (30-65) 1994 PAP SMEAR 1994 BREAST CANCER SCREENING 2004 COLORECTAL SCREENING 2009 Colorectal Cancer Screening 2009 FIT-DNA Q 3 years 2009 FIT/FOBT Q 1 year 2009 Flex Sig/CT Colonography Q 5 years 2009 ZOSTER VACCINE (1 of 2) 2014 INFLUENZA VACCINE (#1) 2025 08/17/2019 RSV VACCINE (60+ or ) (1 - 1-dose 75+ series) 2039 HEPATITIS B VACCINES Aged Out No long er eligible based on patient's age to complete this topic Medical Devices Implanted Type Area Compliance Aide Device Identifier Shelf Expiration Date Model / Serial / Lot Hemostatic Surgiflo 8ml W/Thrombin 2994 - [id number] Implanted:Qty : 1 on 08/16/2019 by Stefano Waddell MD at [facility] Hemostatic N/A: Spine Lumbar [employer] [id number] 05/16/2020 [id number] / / [id number] Insurance [facility] OPTIONS PPO [id number] Care Teams Jewelry Finisher Relationship Specialty Start Date End Date Christopher Rodarte DO [address] [place] [phone] PCP - General Family Practice 08/18/19
--- OUTSIDE RECORDS SUMMARY | 2025-07-10 00:30 | XMS_ITS | Patient Health Record ---
Author Organization [facility] Address [address] [place] [address] [place] [address] Care Team Providers Care Top Printing Press Operator Name Role Phone Christopher Rodarte MD Primary Care Provider Bertrand Tillman Unavailable [phone] ALLERGIES Allergen (clinical drug ingredient) Drug/Non Drug Allergy documented on EMR Reaction Allergy Type Onset Date Status codeine Codeine nausea and vomiting Drug Allergy Active REASON FOR REFERRAL No Information MEDICATIONS Medication SIG (Take, Route, Frequency, Duration) [...] 1 tablet Oral Once a day Active tiZANidine HCl 2 MG 1 tablet at bedtime as needed Orally Once a day for 14 day(s) 04/09/2024 Active Amphetamine-Dextroamphet ER 30 MG Oral for 30 Active PROBLEMS Problem Type ICD Code Onset Dates Problem Status W/U Status Risk SNOMED Code Notes Problem Unilateral primary osteoarthritis, left hip (M16.12) Active confirmed Localized, primary osteoarthritis of the pelvic region and thigh (656813289) Problem Osteoarthritis of hip, unspecified (M16.9) Active confirmed Osteoarthritis of hip (633064195) Problem Sacroiliitis, not elsewhere classified (M46.1) Active confirmed Solitary sacroiliitis (261864936) Problem Spondylosis without myelopathy or radiculopathy, cervical region (M47.812) Active confirmed Cervical spondylosis without myelopathy (054711561) Problem Spondylosis without myelopathy or radiculopathy, cervicothoracic region (M47.813) Active confirmed Cervical spondylosis without myelopathy (966947211) Problem Radiculopathy, cervical region (M54.12) Active confirmed Cervical radiculopathy (41581691) Problem Postlaminectomy syndrome, not elsewhere classified (M96.1) Active confirmed Post-lami nectomy syndrome (47758275) Problem Osseous stenosis of neural canal of cervical region (M99.31) Active confirmed Spinal stenosis in cervical region (53640608) Problem Osseous stenosis of neural canal of lumbar region (M99.33) Active confirmed Spinal stenosis of lumbar region (79266770) Problem Degenerative cervical spinal stenosis (M48.02) Active confirmed Degenerati ve cervical spinal stenosis (117106105) Problem Lumbar radiculopathy (M54.16) Active confirmed Lumbar radiculopathy (376665813) PLAN OF TREATMENT Pending Test Test Name Order Date MRI : Cervical Spine without Contrast (7 0540) 03/15/2024 MRI : Lumbar Spine without contrast (721 48) 03/15/2024 MRI : Lumbar Spine without contrast (721 48) 04/26/2019 Insurance Providers Payer Name Payer Address Payer Phone Subscriber Number Group Number Insured Name Patient Relationship to Insured Coverage Start Date Coverage End Date [facility] [address] [place] [address] [id number] MIKE PRADHAN Self - patient is the insured MEDICAL (GENERAL) HISTORY Medical History History ICD Code Depression Anxiety Surgical History Surgery Date(Month/Year) L4-5 + L5-S1 Discectomy 2019 Left L4-5 Laminectomy + Facetectomy
[2025-07-10 06:17] VITALS: BP 118/69; PULSE 77; RESP 18; TEMP 36.5; O2SAT 100; BMI 20.3
[2025-07-10] MEDS: LACTATED RINGERS 1,000 ML 150 ML IV CONT (06:28)
--- NOTE | 2025-07-10 06:58 | WPDANESEPPF ---
Anes - Initial Pre Proc Eval Procedure: Operation Date: 07/10/25 07:30 Proposed Procedures p Screening Colonoscopy - Fabian Ríos MD Date/Time: 07/10/25 06:58 Surgeon: Fabian Ríos MD Pre Op Diagnosis: Screening Patient Data Age: 59 Gender: F Height: 1.63 m Weight: 53.7 kg Last Vital Signs Temp 36.5 C 07/10/25 06:17 Pulse 77 07/10/25 06:17 Resp 18 07/10/25 06:17 BP 118/69 07/10/25 06:17 Pulse Ox 100 07/10/25 06:17 O2 Del Method Room Air 07/10/25 06:17 Allergies Allergy/AdvReac Type Severity Reaction Status Date / Time codeine Allergy Nausea Verified 07/10/25 06:16 Home Medications ?Medication ?Instructions ?Recorded ?Confirmed ?Type bupropion HCl 300 mg 24 hr tablet, 300 mg PO DAILY 06/27/25 07/10/25 History extended release cariprazine 1.5 mg capsule 1.5 mg PO DAILY 06/27/25 07/10/25 History (Vraylar) dextroamphetamine-amphetamine 10 10 mg PO DAILY 06/27/25 07/10/25 History mg tablet dextroamphetamine-amphetamine ER 30 mg PO DAILY 06/27/25 07/10/25 History 30 mg 24hr capsule,extend release sertraline 100 mg tablet 100 mg PO DAILY 06/27/25 07/10/25 History Patient hx anesthesia problems: none Family hx anesthesia problems: none Results Review: All pre-operative results and documents have been reviewed as part of the pre-operative evaluation. [facility] Past Medical History Medical History (Updated 07/10/25 @ 06:59 by Ivan Julian MD) Depression Surgical History Surgical History (Updated 07/10/25 @ 07:00 by Ivan Julian MD) History of lumbar surgery Social History Social History Smoking status: Never smoker Alcohol intake: current Drinks per week: 4 Substance use: never Substance use type: does not use Living arrangements: with family Spiritual care concerns: No Anes - Eval Final PreProcedure Day of Procedure 07/10/25 06:58 Patient weight: normal Heart: regular rate and rhythm Lungs: clear to auscultation Airway: Mallampati scale class II Neurological: alert and oriented Last oral intake: >/= 8 hours ASA classification: II Emergent: no Anesthetic plan: proceed Anesthesia type and monitoring: general GIVS and standard monitoring Results Review: All pre-operative results and documents have been reviewed as part of the pre-operative evaluation. Informed Consent: The patient's anesthetic plan and its attendant risks and benefits were discussed with the patient/family/POA. Questions were solicited and answers provided to the satisfaction of the patient/family/POA.
--- NOTE | 2025-07-10 07:32 | PM.IMHP ---
H&P: HPI History of Present Illness Date/Time: 07/10/25 07:32 Chief Complaint: Screening colonoscopy Narrative: This is the patient's first colonoscopy. There are no GI symptoms and there is no family history of colorectal cancer. Review of Systems Review of Systems: All systems reviewed & are unremarkable except as noted in HPI and below [facility] Past Medical History Medical History (Updated 07/10/25 @ 07:33 by Fabian Ríos MD) Depression Surgical History Surgical History (Updated 07/10/25 @ 07:00 by Ivan Julian MD) History of lumbar surgery Social History Social History Smoking status: Never smoker Alcohol intake: current Drinks per week: 4 Substance use: never Substance use type: does not use Living arrangements: with family Spiritual care concerns: No Meds Home Medications and Allergies Home Medications ?Medication ?Instructions ?Recorded ?Confirmed ?Type bupropion HCl 300 mg 24 hr tablet, 300 mg PO DAILY 06/27/25 07/10/25 History extended release cariprazine 1.5 mg capsule 1.5 mg PO DAILY 06/27/25 07/10/25 History (Vraylar) dextroamphetamine-amphetamine 10 10 mg PO DAILY 06/27/25 07/10/25 History mg tablet dextroamphetamine-amphetamine ER 30 mg PO DAILY 06/27/25 07/10/25 History 30 mg 24hr capsule,extend release sertraline 100 mg tablet 100 mg PO DAILY 06/27/25 07/10/25 History Allergies Allergy/AdvReac Type Severity Reaction Status Date / Time codeine Allergy Nausea Verified 07/10/25 06:16 Vital Signs Vital Signs - 24 hr 07/10/25 06:17 Temperature 97.7 F Pulse Rate 77 Respiratory Rate 18 Blood Pressure 118/69 Pulse Oximetry 100 Oxygen Delivery Room Air Exam Const: General: cooperative and healthy appearing Resp: Effort & Inspection: normal respiratory effort and able to speak in complete sentences Auscultation: clear to auscultation bilaterally Cardio: Rate: regular rate Rhythm: regular rhythm GI: Inspection: normal to inspection GI Palp: No No hepatosplenomegaly present Auscultation: normal bowel sounds Rectal Exam: deferred Skin: General skin exam: normal color Psych: Appearance: grossly normal Mental Status: mental status grossly normal Assessment and Plan Assessment and plan (1) Encounter for screening colonoscopy: Code(s): Z12.11 - Encounter for screening for malignant neoplasm of colon Status: Acute Assessment and Plan: The patient is deemed a good candidate for the procedure. Consent signed. Will proceed.
[2025-07-10 07:51] VITALS: BP 114/70; PULSE 76; RESP 20; O2SAT 99
[2025-07-10 08:01] VITALS: BP 126/72; PULSE 71; RESP 19; O2SAT 100
[2025-07-10 08:11] VITALS: BP 125/76; PULSE 66; RESP 16; O2SAT 100
== END 2025-07-10 08:17 | disposition home or self-care (01) ==
PROVIDERS: PCP Nurse Practitioner Family; Referring Provider Nurse Practitioner Family; Visit Provider Internal Medicine Gastroenterology
PROC: 0DJD8ZZ Inspection of Lower Intestinal Tract, Via Natural or Artificial Opening Endoscopic (ICD-10-PCS; CPT 45378; principal; 2025-07-10 07:30)
DX: Z12.11 Encounter for screening for malignant neoplasm of colon (principal); F32.A Depression, unspecified; Z98.1 Arthrodesis status
CPT/HCPCS: 45378; J2704; J7120